=== PATIENT | male | born 1975 | race Caucasian/White ===

== ENCOUNTER 2016-10-15 14:00 | Emergency (ER) | payer BC ==
[2016-10-15 14:39] VITALS: BP 146/82
[2016-10-15] MEDS ORDERED: Ketorolac INJ* 60 MG/2 ML VIAL IM ONE (14:57)
--- NOTE | 2016-10-15 15:26 | RAD ---
Indication: RIGHT shoulder pain radiating to the elbow without proceeding injury. Painful with certain movements. Comparison: None. Technique: Internal and external rotation AP and scapular Y views RIGHT shoulder Report: Normal acromioclavicular and glenohumeral joint alignment. Negative for fracture or focal osseous lesion. Negative for stigmata of calcific tendinopathy. Negative for reactive osseous change at the greater tuberosity to favor chronic rotator cuff pathology. Unremarkable soft tissue contours. IMPRESSION: Negative exam.
--- NOTE | 2016-10-15 16:17 | UC ---
Shoulder Pain HPI - HPI Summary HPI Summary: SEVERAL YEARS OF CHRONIC RIGHT SHOULDER PAIN. RADIATES FROM DELTOID TO RIGHT HAND AND WRIST. IN THE LAST FEW DAYS HAS BEEN WORSENING. PAIN WITH LIFTING. WORKS A [employer], SO COMMONLY OVERUSES EXTREMITY. HAS PT APPT LATER THIS WEEK BUT WANTED TO BE SEEN BEFORE SINCE PAIN IS WORSENING - History of Current Complaint Chief Complaint: UCUpperExtremity Stated Complaint: SHOULDER PAIN Time Seen by Provider: 10/15/16 14:45 Hx Obtained From: Patient Onset/Duration: Gradual Onset, Lasting Weeks, Worse Since - LAST FEW DAYS Timing: Weeks Severity Initially: Moderate Severity Currently: Moderate Location Of Pain: Is Discrete @ - RIGHT SHOULDER Pain Intensity: 5 Pain Scale Used: 0-10 Numeric Character: Dull, Aching, Spasmodic, Stiffness Aggravating Factor(s): Lifting, Extension, Internal Rotation, External Rotation Alleviating Factor(s): Rest, Ice Related History: Similar Episode/Dx As, Dominant Hand Right - Risk Factors Non-Orthopedic Risk Factor: Negative DVT Risk Factors: Negative Septic Arthritis Risk Factor: Negative - Allergies/Home Medications Allergies/Adverse Reactions: Allergies Allergy/AdvReac Type Severity Reaction Status Date / Time No Known Allergies Allergy Verified 10/15/16 14:39 Home Medications: Home Medications Lorazepam [Ativan] 0.5 mg PO PRN 10/15/16 [History] PMH/Surg Hx/FS Hx/Imm Hx Previously Healthy: Yes - Surgical History Surgical History: None - Family History Known Family History: Negative: Cardiac Disease - Social History Occupation: Employed Full-time Lives: With Family Alcohol Use: Rare Substance Use Type: None Smoking Status (MU): Former Smoker Review of Systems Constitutional: Negative Skin: Negative Eyes: Negative ENT: Negative Respiratory: Negative Cardiovascular: Negative Gastrointestinal: Negative Genitourinary: Negative Motor: Negative Neurovascular: Negative Musculoskeletal: Arthralgia, Decreased ROM - RIGHT SHOULDER, Myalgia Neurological: Negative Psychological: Negative All Other Systems Reviewed And Are Negative: Yes Physical Exam Triage Information Reviewed: Yes Appearance: Well-Appearing, Well-Nourished, Pain Distress - MODERATE RIGHT SHOULDER Vital Signs: Initial Vital Signs Temp 68.0 F 10/15/16 14:36 Pulse 92 10/15/16 14:36 Resp 16 10/15/16 14:36 BP 146/82 10/15/16 14:36 Pulse Ox 100 10/15/16 14:36 Vital Signs Reviewed: Yes Eye Exam: Normal ENT Exam: Normal ENT: Positive: Normal ENT inspection, Hearing grossly normal Dental Exam: Normal Neck exam: Normal Neck: Positive: Supple, Nontender, No Lymphadenopathy Respiratory Exam: Normal Respiratory: Positive: Chest non-tender, Lungs clear, Normal breath sounds, No respiratory distress, No accessory muscle use Cardiovascular Exam: Normal Cardiovascular: Positive: RRR, No Murmur, Pulses Normal, Brisk Capillary Refill Abdominal Exam: Normal Musculoskeletal: Positive: ROM Intact, No Edema, Strength Limited @ - RIGHTT SHOULDER EXTENSION ABDUCTION Neurological Exam: Normal Psychological Exam: Normal Skin Exam: Normal Diagnostics - Laboratory Diagnostic Studies Completed/Ordered: SHOULDER XRAY: NORMAL EXAM Shoulder Course/Dx - Differential Dx/Diagnosis Differential Diagnosis/HQI/PQRI: Rotator Cuff Injury, Sprain, Strain, Tendonitis Provider Diagnoses: ACUTE ON CHRONIC RIGHT SHOULDER PAIN Discharge - Discharge Plan Condition: Stable Disposition: HOME Prescriptions: Cyclobenzaprine TAB* [Flexeril TAB*] 10 mg PO TID PRN #15 tab PRN Reason: Spasms HYDROcodone/ACETAMIN 5-325 MG* [[place] 5-325 TAB*] 1 tab PO Q8H PRN #15 tab MDD THREE TABS PRN Reason: Pain Patient Education Materials: Shoulder Pain (ED) Referrals: Christian Jacobsen MD [Primary Care Provider] - Livia Avila MD [Medical Doctor] -
== END 2016-10-15 15:53 | disposition home or self-care (01) ==
LOC: UCEAST 14:00
DX: M25.511 Pain in right shoulder (principal); R03.0 Elevated blood-pressure reading, without diagnosis of hypertension; Z87.891 Personal history of nicotine dependence
CPT/HCPCS: 99202; G0463; J1885

== ENCOUNTER 2019-01-09 14:50 | Emergency (ER) | payer BC, OTHER ==
--- NOTE | 2019-01-09 15:49 | ED ---
GI/ HPI - HPI Summary HPI Summary: Patient is a 43 year old M presenting to [facility] with a chief complaint of hematuria since yesterday, 01/08/19, after masturbating. The patient rates the pain 2/10 in severity. Symptoms aggravated by masturbation. Symptoms alleviated by nothing. Patient reports right testicular pain for the past two days. Patient denies N/V/D. Patient had mild discomfort throughout the day yesterday. Patient had a similar hematuria output this morning also after masturbating. - History of Current Complaint Chief Complaint: EDUrogenitalProblems Time Seen by Provider: 01/09/19 15:40 Stated Complaint: BLOOD IN URINE/CHILLS PER PT Hx Obtained From: Patient Onset/Duration: Started Days Ago - yesterday, Still Present Timing: Intermittent Severity: Mild Current Severity: Mild Pain Intensity: 2 Location of Pain: Other - right testicle Additional Locations for Males: Testicles - right Associated Signs and Symptoms: Positive: Other: - right testicular pain. Negative: Nausea, Vomiting, Diarrhea Aggravating Factor(s): Activity - Masturbation Alleviating Factor(s): Nothing - Allergy/Home Medications Allergies/Adverse Reactions: Allergies Allergy/AdvReac Type Severity Reaction Status Date / Time No Known Allergies Allergy Verified 01/09/19 15:00 PMH/Surg Hx/FS Hx/Imm Hx Previously Healthy: No Endocrine/Hematology History: Denies: Hx Diabetes Psychiatric History: Reports: Hx Anxiety - Surgical History Surgery Procedure, Year, and Place: None Infectious Disease History: No Infectious Disease History: Denies: Traveled Outside the [place] in Last 30 Days - Family History Known Family History: Negative: Cardiac Disease - Social History Alcohol Use: Rare Hx Substance Use: No Substance Use Type: Reports: None Hx Tobacco Use: Yes Smoking Status (MU): Former Smoker Review of Systems Negative: Vomiting, Diarrhea, Nausea Positive: hematuria, pain - Right testicular pain All Other Systems Reviewed And Are Negative: Yes Physical Exam - Summary Physical Exam Summary: Appearance: The patient is well-nourished in no acute distress and in no acute pain. Skin: The skin is warm and dry and skin color reflects adequate perfusion. HEENT: The head is normocephalic and atraumatic. The pupils are equal and reactive. The conjunctivae are clear and without drainage. Nares are patent and without drainage. Mouth reveals moist mucous membranes and the throat is without erythema and exudate. The external ears are intact. The ear canals are patent and without drainage. The tympanic membranes are intact. Neck: The neck is supple with full range of motion and non-tender. There are no carotid bruits. There is no neck vein distension. Respiratory: Chest is non-tender. Lungs are clear to auscultation and breath sounds are symmetrical and equal. Cardiovascular: Heart is regular rate and rhythm. There is no murmur or rub auscultated. There is no peripheral edema and pulses are symmetrical and equal. Abdomen: The abdomen is soft and non-tender. There are normal bowel sounds heard in all four quadrants and there is no organomegaly palpated. Genital exam: Tenderness in the epididymis. Decreased cremaster reflex. Musculoskeletal: There is no back tenderness noted. Extremities are non-tender with full range of motion. There is good capillary refill. There is no peripheral edema or calf tenderness elicited. Neurological: Patient is alert and oriented to person, place and time. The patient has symmetrical motor strength in all four extremities. Cranial nerves are grossly intact. Deep tendon reflexes are symmetrical and equal in all four extremities. Psychiatric: The patient has an appropriate affect and does not exhibit any anxiety or depression. Triage Information Reviewed: Yes Vital Signs On Initial Exam: Initial Vitals Temp Pulse Resp BP Pulse Ox 98.9 F 90 14 153/84 98 01/09/19 15:00 01/09/19 15:00 01/09/19 15:00 01/09/19 15:00 01/09/19 15:00 Vital Signs Reviewed: Yes Diagnostics - Vital Signs Vital Signs Temp Pulse Resp BP Pulse Ox 01/09/19 15:00 98.9 F 90 14 153/84 98 - Laboratory Lab Statement: Any lab studies that have been ordered have been reviewed, and results considered in the medical decision making process. - Ultrasound No standard instances Ultrasound Interpretation Completed By: Radiologist Summary of Ultrasound Findings: 1. NO EVIDENCE FOR TESTICULAR TORSION OR EPIDIDYMITIS. 2. SMALL BILATERAL HYDROCELES. 3. SMALL LEFT EPIDIDYMAL HEAD CYST. ED physician has reviewed the report. Re-Evaluation - Re-Evaluation First Eval Re-Evaluation Time: 17:00 Comment: Discussed discharge plan with patient and mother. Both are agreeable. GIGU Course/Dx - Course Course Of Treatment: Mr. Eckenrode complained of seeing blood in his urine after having an orgasm yesterday and today. He has some vague discomfort in his right testicle. He says some intermittent left low back pain also but is not complaining of that at this time. He feels that is musculoskeletal. His exam revealed some tenderness in the right epididymis was otherwise negative. Ultrasound of his testicles was negative. UA shows only a spot of microcytic blood. I reassured him that this was likely to resolve and was not all that unusual I recommended he follow up with Dr. Guzman if problems continue. On the off chance this represents flank pain referred to the testicle with hematuria I recommended he get it checked out if it returns for the possibility of a stone. - Diagnoses Provider Diagnoses: Hematuria Discharge - Sign-Out/Discharge Documenting (check all that apply): Patient Departure - discharge Patient Received Moderate/Deep Sedation with Procedure: No - Discharge Plan Condition: Stable Disposition: HOME Patient Education Materials: Hematuria (ED) Referrals: Carlos Alberto Guzman MD [Medical Doctor] - 1 Week Additional Instructions: Follow up with Dr. Guzman, urology, in one week if symptoms continue. Return to the emergemcy department for any new or worsening symptoms. - Billing Disposition and Condition Condition: STABLE Disposition: Home - Attestation Statements Document Initiated by Franklynibe: Yes Documenting Scribe: Cher Zhao Provider For Whom Ly is Documenting (Include Credential): Selvin Price MD Scribe Attestation: Josue Coates Tiffany Liu, scribed for Selvin Price MD on 01/09/19 at 1855. Scribe Documentation Reviewed: Yes Provider Attestation: The documentation as recorded by the franklynibleanna, Cher Zhao accurately reflects the service I personally performed and the decisions made by me, Selvin Price MD Status of Scribe Document: Viewed
[2019-01-09 16:31] LABS: Urine Appearance Clear; Urine Bacteria Absent (Absent); Urine Bilirubin Negative (Negative); Urine Blood 2+ (Negative); Urine Color Yellow; Urine Glucose Negative (Negative); Urine Ketones Negative (Negative); Urine Nitrite Negative (Negative); Urine Protein Negative (Negative); Urine Red Blood Cell 3+(>10/hpf) (Absent); Urine Urobilinogen Negative (Negative); Urine White Blood Cell Trace(0-5/hpf) (Absent)
[2019-01-09 17:23] VITALS: BP 132/88
== END 2019-01-09 17:22 | disposition home or self-care (01) ==
LOC: ED 14:50
DX: R31.9 Hematuria, unspecified (principal); Z87.891 Personal history of nicotine dependence
CPT/HCPCS: 76870; 81003; 81015; 87086; 99282